=== PATIENT | female | born 1985 | race Two or more races ===

== ENCOUNTER 2017-02-04 19:01 | Emergency (ER) | payer MEDICAID ==
[~2017-02-04] VITALS: Ht 160 cm; Wt 63.5 kg
[2017-02-04 22:00] VITALS: BP 124/88
[2017-02-04] MEDS ORDERED: ONDANSETRON HCL 4 MG/2 ML VIAL IV ONE (22:00)
[2017-02-04] MEDS ORDERED: MORPHINE SULF INJ 2 MG/ML SYRINGE 1ML IV ONE (22:00)
[2017-02-04] MEDS ORDERED: KETOROLAC TROMETH 30 MG/ML 1ML VIAL IM ONE (22:00)
[2017-02-04] MEDS ORDERED: HYDROcodone-ACET 10/325MG TAB PO ONE (22:00)
== END 2017-02-04 23:59 | disposition home or self-care (01) ==
LOC: ER 19:11 → EDBD 19:11 → ER 23:59
DX: M25.511 Pain in right shoulder (principal); V86.59XA Driver of other special all-terrain or other off-road motor vehicle injured in nontraffic accident, initial encounter; Y93.89 Activity, other specified; Y99.8 Other external cause status; Y92.89 Other specified places as the place of occurrence of the external cause
CPT/HCPCS: 70450; 72125; 73030; 73110; 73200; 96374; 96375; 99285; J2270; J2405